=== PATIENT | male | born 1995 | race Two or more races ===

== ENCOUNTER 2018-04-11 16:05 | Emergency (ER) | payer OTHER ==
[2018-04-11] MEDS ORDERED: ONDANSETRON 4 MG/2 ML VIAL IVP ONE (16:39)
[2018-04-11] MEDS ORDERED: NS 1,000 ML IV ONE (16:39)
[2018-04-11 17:41] LABS: PLATELET COUNT 235 10^3/uL (150-400)
--- NOTE | 2018-04-11 18:05 | EDPHY ---
H & P Stated Complaint: 3 DRINKS TEQUILA LAST NIGHT/N/V ALL DAY Time Seen by Provider: 04/11/18 16:27 HPI/ROS: CHIEF COMPLAINT: Vomiting HISTORY OF PRESENT ILLNESS: 22-year-old male presents emergency department reporting that he has been vomiting all day today. Patient drinks 3 to kill a shots last night. He reports that in the past he has actually had more alcohol and that without symptoms of vomiting like today. He is a daily marijuana smoker. Denies illicit drug use recently, although he has used cocaine in the remote past. No fevers or chills. No diarrhea. No urinary complaints. No headache or lightheadedness. REVIEW OF SYSTEMS: A comprehensive 10 system review of systems was reviewed and is otherwise negative aside from elements mentioned in the history of present illness. PAST MEDICAL HISTORY: Patient denies. SOCIAL HISTORY: Student. No tobacco smoke. VITAL SIGNS Reviewed by me. GENERAL: Well-developed, well-nourished, resting comfortably in no respiratory distress. HEENT: Atraumatic. Eyes: No icterus, no injection. Mouth: moist mucous membranes. No erythema or lesions. Neck: supple with no adenopathy. LUNGS: Clear to auscultation bilaterally, no wheezes, rhonchi or rales. CARDIAC: Regular rate and rhythm, no rubs, murmurs or gallops. ABDOMEN: Soft, tenderness in epigastrium and in the right lower quadrant, nontender, nondistended, bowel sounds normal. BACK: No CVA tenderness. EXTREMITIES: No trauma. No edema. Range of motion is normal throughout. NEURO: Alert and oriented, grossly nonfocal. SKIN: Warm and dry, no rash. PSYCHIATRIC: Normal mentation, no agitation. - Personal History Current Tetanus Diphtheria and Acellular Pertussis (TDAP): Unsure - Medical/Surgical History Hx Asthma: No Hx Chronic Respiratory Disease: No Hx Diabetes: No Hx Cardiac Disease: No Hx Renal Disease: No Hx Cirrhosis: No Hx Alcoholism: No Hx HIV/AIDS: No Hx Splenectomy or Spleen Trauma: No Other PMH: DENIES - Social History Smoking Status: Current every day smoker Constitutional: Initial Vital Signs Temperature (C) 36.8 C 04/11/18 16:08 Heart Rate 71 04/11/18 16:08 Respiratory Rate 16 04/11/18 16:08 Blood Pressure 121/78 H 04/11/18 16:08 O2 Sat (%) 98 04/11/18 16:08 O2 Delivery Mode Room Air Allergies/Adverse Reactions: No Known Allergies Allergy (Verified 04/11/18 16:08) Home Medications: Medication Instructions Recorded Ondansetron Odt [Zofran Odt 4 mg 4 mg PO Q6 PRN #8 tab 04/11/18 (RX)] Medical Decision Making ED Course/Re-evaluation: Patient was a difficult IV placement. Eventually IV was established and patient received normal saline. He received Zofran for his nausea. Labs: slightly hemolyzed, K of 5.2. Other labs unremarkable. Much better post fluids and zofran. Tolerating PO's in ED. Abd soft, nontender. No fever, no focal pain. Will dc to home with zofran and encourage to stop daily marijuana use. Differential Diagnosis: Diff dx for patients nausea and vomiting was considered including but not limited to gastroenteritis, gastritis, alcohol withdrawl, pancreatitis, cyclic vomiting syndrome, intraabdominal processes such as appendicitis or uti. - Data Points Laboratory Results: Laboratory Results 04/11/18 17:22 04/11/18 16:34 Medications Given: Discontinued Medications Sodium Chloride (Ns) 1,000 mls @ 0 mls/hr IV ONCE ONE; Wide Open PRN Reason: Protocol Stop: 04/11/18 16:40 Last Admin: 04/11/18 17:15 Dose: 1,000 mls Ondansetron HCl (Zofran) 4 mg IVP EDNOW ONE Stop: 04/11/18 16:40 Last Admin: 04/11/18 18:09 Dose: 4 mg Departure - Departure Disposition: Home, Routine, Self-Care Clinical Impression: Vomiting alone Condition: Good Instructions: Ondansetron (By mouth), Gastritis (ED), Acute Nausea and Vomiting (ED) Additional Instructions: For your nausea and vomiting, I suggested you start with a bland diet and advance as tolerated. This means start with clear liquids such as water, Gatorade, juice, flat non- caffeinated soda. If you tolerate clear liquids, then you may add bland foods such as bananas, rice, or toast. If you do not have any worsening of your symptoms, you may begin to resume a regular diet. Okay to use Zofran as needed for any recurrent nausea or vomiting. I suggest decreasing your daily marijuana use. I suggest obtaining an [id number] prescription for omeprazole. Take this as directed for the 2 weeks. Please return to the emergency department or seek care urgently if you developed recurrent nausea vomiting, fever, diarrhea, abdominal pain, or other concerns. Referrals: NONE *PRIMARY CARE P,. [Primary Care Provider] - As per Instructions Stand Alone Forms: School Excuse Prescriptions: Ondansetron Odt [Zofran Odt 4 mg (RX)] 4 mg PO Q6 PRN #8 tab PRN Reason: Nausea
[2018-04-11 18:51] VITALS: BP 126/88
== END 2018-04-11 18:51 | disposition home or self-care (01) ==
DX: R11.10 Vomiting, unspecified (principal); F12.90 Cannabis use, unspecified, uncomplicated
CPT/HCPCS: 96374; J2405